=== PATIENT | female | born 1955 | race African-American/Black ===

== ENCOUNTER → 2016-06-15 | Outpatient (CLI) | payer BC ==
[~2016-06-15] MED LIST: ANASTROZOLE1 MG PO; CIPRO PO; DEXAMETHASONE4 M1; HYDROCODON-ACE1 EAC7 PO; HYDROCODON-ACE1 EAC9 PO; HYDROCODONE-APA1 T55 PO; MOTRIN400 MG PO; ONDANSETRON HCL4 MG PO; PHENERGAN25 M1 PO; TYL325 PO
[2016-06-15 14:16] LABS: HEMOGLOBIN 11.1 gm/dL (12.0-16.0); MEAN CELL VOLUME 96.5 FL (83-96); MEAN CORPUSCULAR HEMOGLOBIN 31.5 PG (28-34); MEAN CORPUSCULAR HGB CONC 32.7 g/dL (30-36); MEAN PLATELET VOLUME 7.7 FL (6.5-11.5); RED BLOOD COUNT 3.52 X10e (3.90-5.30); RED CELL DISTRIBUTION WIDTH 16.9 % (11.0-15.5); WHITE BLOOD COUNT 4.8 X10e3 (4.0-10.5)
[2016-06-15 14:52] LABS: BLOOD UREA NITROGEN 7 mg/dL (9-23); CALCIUM SERUM 9.7 mg/dL (8.4-10.2); CARBON DIOXIDE 26 mmol/L (22-31); CHLORIDE 107 mmol/L (100-111); CREATININE SERUM 0.5 mg/dL (0.6-1.4); GLOM FILT RATE Estimated ABOVE60 mL/min (>60); GLUCOSE FASTING 89 mg/dL (70-110); POTASSIUM 4.2 mmol/L (3.5-5.1); SODIUM 141 mmol/L (135-145)
== END | disposition home or self-care (01) ==
LOC: CAMB 12:10
PROVIDERS: Surgery
DX: Z01.818 Encounter for other preprocedural examination (principal)
CPT/HCPCS: 36415; 80048; 85027; 93005

== ENCOUNTER → 2016-08-05 | Outpatient (CLI) | payer BC ==
--- NOTE | ~2016-08-05 | XA80 ---
[facility] A Service of [facility] RADIOLOGY TEXT RESULTS PATIENT: YOLANDA MEJIA LOCATION: CIVR : 51 UNIT #: [id number] AGE: [address]: Domingo Fang MD SEX: F ORDER DR: [id number] [facility]. [place], [place] [address] [id number] O MR#: [id number] Acc #: [id number] NAME: YOLANDA MEJIA : 1955 SEX: F STUDY DATE/TIME: 08/05/2016 9:14 UNIT: CIVR ROOM: STUDY DESCRIPTION: XA CVC Remove Tunneled Cath W Attending Physician: Domingo Fang M.D. Ordering Physician: Domingo Fang M.D. Primary Care Physician: Nigel Wynne M.D. MEDICAL IMAGING REPORT This report is preliminary unless electronic signature is present EXAM Chest port removal. INDICATIONS End of treatment. Chest port no longer needed. The fluoro time 0.1 minutes. Reference air kerma 1 mGy. The risks, benefits, and alternatives of the procedure were discussed with the patient and informed consent was obtained. In the procedure room, a time out was performed confirming correct patient and procedure. All elements of maximum sterile-barrier technique utilized according to guidelines appropriate for the procedure. IV Versed and fentanyl were administered for conscious sedation and conscious sedation time of 70 minutes as monitored by appropriately credentialed radiology nursing staff. TECHNIQUE/FINDINGS A assembler musical equipment image was taken. Skin overlying the chest port was prepped and draped in usual sterile fashion. Next, using full standard sterile-barrier technique, including sterile caps, gowns, gloves, mass, drapes, 2% Chlorhexidine for cutaneous anti-sepsis, and hand hygiene, and incision was made through the scar overlying the chest port. The chest port was then removed in its entirety. The incision was closed using 3-0 Vicryl, 4-0 Monocryl and Dermabond. Spot image was taken confirming that the chest port was removed in its entirety. The patient tolerated the procedure well without immediate complications. IMPRESSION Successful chest port removal. Dictated by... [facility] A Service of [facility] [place] RADIOLOGY TEXT RESULTS PATIENT: YOLANDA MEJIA [id number] [birth year] UNIT #: [id number] AGE: [address]: Domingo Fang MD SEX: F ORDER DR: Rey Nicole M.D. THIS IS AN ELECTRONICALLY VERIFIED REPORT Rey Nicole M.D. at 08/06/2016 4:52 PM ARS/pcl TD: 08/05/2016 19:44 JOB #: [id number] MEDICAL IMAGING REPORT Page 1 of 1 COPY
[2016-08-05 07:50] LABS: HEMATOCRIT 38.5 % (35.0-45.0); HEMOGLOBIN 12.5 gm/dL (12.0-16.0); MEAN CELL VOLUME 92.8 FL (83-96); MEAN CORPUSCULAR HEMOGLOBIN 30.2 PG (28-34); MEAN CORPUSCULAR HGB CONC 32.5 g/dL (30-36); MEAN PLATELET VOLUME 7.1 FL (6.5-11.5); RED BLOOD COUNT 4.15 X10e (3.90-5.30); RED CELL DISTRIBUTION WIDTH 13.6 % (11.0-15.5); WHITE BLOOD COUNT 4.1 X10e3 (4.0-10.5)
[2016-08-05 08:05] LABS: INR 0.9; PARTIAL THROMBOPLASTIN TIME 22.5 SECONDS (23.5-31.3); PROTHROMBIN TIME (PATIENT) 9.7 SECONDS (9.6-11.5)
== END | disposition home or self-care (01) ==
LOC: CIVR 07:11
PROVIDERS: Internal Medicine Medical Oncology
DX: Z45.2 Encounter for adjustment and management of vascular access device (principal); C50.912 Malignant neoplasm of unspecified site of left female breast; C50.919 Malignant neoplasm of unspecified site of unspecified female breast; Z88.0 Allergy status to penicillin
CPT/HCPCS: 36415; 77001; 85027; 85610; 85730; J2250; J3010

== ENCOUNTER → 2016-10-20 | Outpatient (CLI) | payer BC ==
--- NOTE | ~2016-10-20 | CR151 ---
[facility] A Service of [facility] [place] [place] RADIOLOGY TEXT RESULTS PATIENT: YOLANDA MEJIA LOCATION: [facility] : 51 UNIT #: [id number] AGE: [address]: Domingo Fang MD SEX: F ORDER DR: [id number] [facility] [address] [place], [place] [address] [id number] O MR#: [id number] Acc #: [id number] NAME: YOLANDA MEJIA : 1955 SEX: F STUDY DATE/TIME: 10/20/2016 11:34 UNIT: [facility] ROOM: STUDY DESCRIPTION: CR Hip Min 2 Views Rt Attending Physician: Domingo Fang M.D. Referring Physician: Domingo Fang M.D. Ordering Physician: Domingo Fang M.D. Primary Care Physician: Nigel Wynne M.D. MEDICAL IMAGING REPORT This report is preliminary unless electronic signature is present EXAM Right hip HISTORY Right-sided hip pain intermittently over the past 10 months. History of breast cancer. TECHNIQUE Two views of the right hip were obtained. FINDINGS Two views right hip show moderate joint space narrowing with osteophyte formation. There is cortical irregularity along the roof the acetabulum. There is no evidence of fracture. Sclerotic lesion or bone destruction. No radiograph evidence for metastatic disease. Remainder of the bony pelvis is unremarkable. An incidental small unicameral bone cyst is seen in the left femoral neck. IMPRESSION Moderately severe arthritic changes in the right hip. No acute bony abnormalities are seen. Dictated by... Selvin Alas M.D. THIS IS AN ELECTRONICALLY VERIFIED REPORT Selivn Alas M.D. at 10/21/2016 6:59 AM JEAN CLAUDE/sumit TD: 10/20/2016 22:16 [facility] A Service [facility] RADIOLOGY TEXT RESULTS PATIENT: YOLANDA MEJIA LOCATION: [facility] : 51 UNIT #: [id number] AGE: [address]: Domingo Fang MD SEX: F ORDER DR: JOB #: [id number] MEDICAL IMAGING REPORT Page 1 of 1 COPY
== END | disposition home or self-care (01) ==
LOC: CRAD 11:13
DX: R10.30 Lower abdominal pain, unspecified (principal); M16.11 Unilateral primary osteoarthritis, right hip; Z85.3 Personal history of malignant neoplasm of breast
CPT/HCPCS: 73502